=== PATIENT | male | born 1965 | race Caucasian/White ===

== ENCOUNTER 2024-03-09 14:19 | Inpatient (IN) | payer BC ==
[2024-03-09 15:24] VITALS: BMI 22.6
[2024-03-09] MEDS ORDERED: POLYETHYLENE GLYCOL (HEALTHYLAX) 3350 17 GM PACKET PO PRN (16:06)
[2024-03-09] MEDS ORDERED: BENZONATATE 200 MG CAPSULE PO PRN (16:06)
[2024-03-09] MEDS ORDERED: MAG HYDROX/AL HYDROX/SIMETH 30 ML UNIT-DOSE CUP PO PRN (16:06)
[2024-03-09] MEDS ORDERED: LOPERAMIDE HCL 2 MG CAPSULE PO PRN (16:06)
[2024-03-09] MEDS ORDERED: NALOXONE HCL 0.4 MG/ML VIAL IM PRN (16:06)
[2024-03-09] MEDS ORDERED: BENZOCAINE/MENTHOL (CHLORASEPTIC ) LOZENGE MM PRN (16:06)
[2024-03-09] MEDS ORDERED: MAGNESIUM HYDROX 2400MG/30ML ORAL SUSPENSION 30 ML CUP PO PRN (16:06)
[2024-03-09] MEDS ORDERED: IBUPROFEN 400 MG TABLET (FP) PO PRN (16:06)
[2024-03-09] MEDS ORDERED: DICYCLOMINE HCL 10 MG CAPSULE PO PRN (16:06)
[2024-03-09] MEDS ORDERED: BISMUTH SUBSALICYLATE 524 MG/30 ML PO PRN (16:06)
[2024-03-09] MEDS ORDERED: ONDANSETRON *ODT* 4 MG TABLET SL PRN (16:06)
[2024-03-09] MEDS ORDERED: NALOXONE (NARCAN) HCL 4 MG/0.1 ML SPRAY NS PRN (16:06)
[2024-03-09] MEDS ORDERED: chlordiazePOXIDE HCL 25 MG CAPSULE PO PRN (16:16)
[2024-03-09] MEDS: MELATONIN 5 MG TABLETS PO SCH (22:16)
[2024-03-09] MEDS: chlordiazePOXIDE HCL 25 MG CAPSULE PO SCH (22:16)
[2024-03-09] MEDS: THIAMINE 100 MG TABLET PO SCH (22:16)
[2024-03-10] MEDS: ACETAMINOPHEN 325 MG TABLET (FP) PO PRN (05:30)
[2024-03-10] MEDS: PRENATAL VITAMINS W/ FOLIC ACID TABLET (FP) PO SCH (10:34)
[2024-03-10] MEDS: hydrOXYzine PAMOATE 25 MG CAPSULE (FP) PO PRN (10:36)
[2024-03-10] MEDS: IBUPROFEN 600 MG TABLET (FP) PO PRN (10:37)
[2024-03-10] MEDS: guaiFENesin 600 MG TABLET.ER (FP) PO PRN (10:40)
[2024-03-10 11:21] LABS: HEMATOCRIT 35.4 % (35.4-49); HEMOGLOBIN 11.9 GM/dL (11.7-16.9); MCH 34.2 pg (25.7-33.7); MCHC 33.5 g/dl (32.0-35.9); PLATELET COUNT 136 10^3/uL (134-434); RBC 3.47 M/mm3 (4.00-5.60); RDW 15.8 % (11.9-15.9)
[2024-03-10 11:53] LABS: CHLORIDE 99 mmol/L (98-107); POTASSIUM 3.8 mmol/L (3.5-5.1); SODIUM 138 mmol/L (136-145)
[2024-03-10 11:55] LABS: CALCIUM 9.4 mg/dL (8.5-10.1)
[2024-03-10 11:56] LABS: ALBUMIN 3.4 g/dl (3.4-5.0); ANION GAP 9 mmol/L (4-13); BLOOD UREA NITROGEN 9.7 mg/dL (7-18); CO2 30 mmol/L (21-32); GLUCOSE,RANDOM 118 mg/dL (74-106)
[2024-03-10 11:59] LABS: CREATININE 0.6 mg/dL (0.55-1.3); SGOT/AST 101 U/L (15-37); SGPT/ALT 77 U/L (13-61)
[2024-03-10 12:00] LABS: BILIRUBIN,TOTAL 1.4 mg/dL (0.2-1)
[2024-03-10 12:01] LABS: TOT PROT 6.8 g/dl (6.4-8.2)
[2024-03-10 12:02] LABS: ALK PHOS 62 U/L (45-117)
[2024-03-10] MEDS: METHOCARBAMOL 500 MG TABLET PO PRN (17:46)
[2024-03-10] MEDS: MELATONIN 5 MG TABLETS PO SCH (22:07)
[2024-03-11] MEDS: chlordiazePOXIDE HCL 25 MG CAPSULE PO SCH (05:35)
[2024-03-11] MEDS: ESCITALOPRAM OXALATE 10 MG TABLET PO SCH (09:53)
[2024-03-12] MEDS ORDERED: chlordiazePOXIDE HCL 10 MG CAPSULE PO PRN
[2024-03-12] MEDS: chlordiazePOXIDE HCL 10 MG CAPSULE PO SCH (05:22)
[2024-03-12] MEDS: ACAMPROSATE CALCIUM 333 MG TABLET.DR PO SCH (13:48)
[2024-03-13] MEDS: chlordiazePOXIDE HCL 10 MG CAPSULE PO SCH (05:28)
[2024-03-14] MEDS: chlordiazePOXIDE HCL 10 MG CAPSULE PO ONE (05:52)
[2024-03-14 06:25] VITALS: RESP 18
[2024-03-14 09:27] VITALS: BP 109/60; PULSE 73; TEMP 97.8
== END 2024-03-14 10:16 | disposition home or self-care (01) | DRG 774 ==
LOC: YASAS 14:19 → Y6N 17:23
PROVIDERS: ADMIT Allergy & Immunology; ATTEND Surgery
PROC: HZ2ZZZZ Detoxification Services for Substance Abuse Treatment (ICD-10-PCS; principal; 2024-03-09)
DX: F10.230 Alcohol dependence with withdrawal, uncomplicated (principal); F14.20 Cocaine dependence, uncomplicated; F17.210 Nicotine dependence, cigarettes, uncomplicated; F10.24 Alcohol dependence with alcohol-induced mood disorder; F32.A Depression, unspecified; R74.8 Abnormal levels of other serum enzymes
CPT/HCPCS: 36415; 80053; 80305; 80307; 85027; 87811; 93005; 93010